=== PATIENT | female | born 1965 | race Caucasian/White ===

== ENCOUNTER 2023-10-28 11:02 | Outpatient (CLI) | payer BC, SELFPAY | END 2023-10-28 11:03 | disposition home or self-care (01) | PROVIDERS: Visit Provider Physician Assistant | DX: M79.605 Pain in left leg (principal) | CPT/HCPCS: 85379 ==

== ENCOUNTER 2024-07-01 08:09 | Emergency (ER) | payer OTHER, SELFPAY ==
[2024-07-01 08:12] VITALS: BP 131/80; PULSE 101; RESP 20; TEMP 37; O2SAT 95; BMI 39.2
--- NOTE | 2024-07-01 08:22 | CRLHL7_ITS ---
For Patients: As a result of the Cures Act, medical imaging exams and procedure reports are released immediately into your electronic medical record. You may view this report before your referring provider. If you have questions, please contact your health care provider. INDICATION: Dizzy, headache. COMPARISON: None. TECHNIQUE: CT of the brain / head without intravenous contrast. Multiplanar axial, coronal, and sagittal reformats were reconstructed. FINDINGS: No intracranial hemorrhage. Normal appearance of the white matter. No acute or subacute cortically based infarct. No mass or mass effect. Normal ventricles. No skull fractures. No worrisome focal bone lesion. IMPRESSION: Normal head CT. Please note that all CT scans at this facility use dose modulation, iterative reconstruction, and/or weight-based dosing when appropriate to reduce radiation dose to as low as reasonably achievable. Dictated by Mary Nicole MD @ 07/01/2024 9:27:40 AM (Electronically Signed)
--- NOTE | 2024-07-01 08:50 | ED.GENADULT ---
HPI - General Adult General Date Seen: 07/01/24 Chief complaint: Dizziness/Vertigo Stated complaint: c/o heart attack, dizzy, short of breath Time Seen by Provider: 07/01/24 08:49 History of Present Illness HPI narrative: History is limited by patient presentation. She is acting and she is personally reporting that confused. often times has trouble remembering details. 59 yo F with a complex past history. History I can get from the patient and her boyfriend is that she has a history of cervical cancer and underwent an abdominal hysterectomy fiber 6 years ago by surgeon in the [facility] system at [facility]. Her hysterectomy was complicated by bowel perforation and also an injury to her ureter. It sounds like she needed bowel surgery and had a colostomy for a couple of years. She subsequently had a colostomy takedown a couple of years later. She also has a history of kidney stones. She thinks she has PTSD from her previous surgery. She has a history of anemia and had been on iron before but is not on iron now. She also has restless legs, anxiety and gets frequent headaches. She presents to the ER this morning with several concerns. First, she says that she ?does not feel right?. She is worried she might be having a heart attack. She also has a bad headache. She feels dizzy. She had described her symptoms and seen confused triage nurses and was complaining of headache so they ordered a stat noncontrast head CT directly during the triage process and called me to her room. I entered the room she was changing into her gown and shortly thereafter our vehicle operator technician arrived to take her for stat imaging. However she was very anxious and refusing to go to CT so CT was held. HPI that I can get from the patient and her boyfriend is as follows. They apparently had a argument over the weekend. She woke up Thursday morning or Thursday morning with a headache. It is all of throughout her head and she says her head feels, ?Whooshy? . She says her he had feels like someone squeezing it and then letting go. It does not really sound like she hit this is a pulsatile headache or that it is really throbbing. Is been coming and going since then. She cannot identify any exacerbating or alleviating factors. Unclear if she has had any medication for it. She has also been having some pain in her flank and the upper portion of her low back, be in particular yesterday. She it is worried that there is something wrong with her kidneys. She says that her kidneys were ?damaged? during her hysterectomy, but cannot tell me what was damage. It sounds like she may have had a ureter injury. Unclear if she had an acute kidney injury or if there was a direct trauma to her kidneys from the surgery. She says sometimes her creatinine is a bit elevated. She has also been having some pain in her left shoulder (in the trapezius muscle) for several days. It sounds like this actually been coming and going for a long time. I can get a clear history about how long it has been going. It sounds like she frequently asks her boyfriend rub that shoulder because it is sore. She is worried she might be having a heart attack. She is not having any anterior chest pain. Yesterday she was feeling like her heart was beating irregularly. I can get a better description about whether is skipping beats or beating faster beating slow. She was dizzy. It sounds like she did not faint. She says food does not taste right today. It sounds like her primary care provider is through the [facility] system. I accessed her medical records through [facility]. Past medical history includes Cervical cancer Hysterectomy Bowel perforation Ureteral vaginal fistula Elevated liver function tests Liver mass Essential thrombocytopenia Thrombocytosis Acute kidney injury Hyponatremia Anxiety Restless legs and Multiple personality disorder Obesity Hyperlipidemia The patient has a copy of her medication list on her smart phone. Medications Furosemide Lomotil Gabapentin Mirapex Hydroxyzine Rosuvastatin Zoloft Trazodone Colestipol CPAP Clotrimazole cream Iron deficiency anemia Related Data Home Medications ?Medication ?Instructions ?Recorded ?Confirmed Bacillus coagulans [Probiotic (B. PO 10/28/23 10/28/23 coagulans)] calcium polycarbophil [Fiber-Tabs] PO 10/28/23 10/28/23 colestipol 1 gram tablet 2 g PO BID 10/28/23 10/28/23 diphenoxylate-atropine 2.5 1 tab PO BID PRN 10/28/23 07/01/24 mg-0.025 mg tablet ferrous sulfate 325 mg (65 mg 325 mg PO DAILY 10/28/23 07/01/24 iron) tablet gabapentin 300 mg capsule mg PO 10/28/23 10/28/23 hydroxyzine HCl 25 mg tablet 25 mg PO QID 10/28/23 07/01/24 lorazepam 0.5 mg tablet mg PO PRN 10/28/23 10/28/23 multivitamin 1 tab PO QAM 10/28/23 10/28/23 phentermine 37.5 mg tablet 37.5 mg PO DAILY 10/28/23 10/28/23 pramipexole 0.125 mg tablet 0.25 mg PO BID 10/28/23 07/01/24 sertraline 50 mg tablet 50 mg PO DAILY 10/28/23 07/01/24 trazodone 150 mg tablet 150 mg PO QPM 10/28/23 07/01/24 furosemide 20 mg tablet 20 mg PO DAILY 07/01/24 07/01/24 rosuvastatin 10 mg tablet 10 mg PO QPM 07/01/24 07/01/24 Previous Rx's ?Medication ?Instructions ?Recorded cephalexin 500 mg capsule 500 mg PO TID #21 caps 10/28/23 cefdinir 300 mg capsule 300 mg PO BID #14 caps 07/01/24 Allergies Allergy/AdvReac Type Severity Reaction Status Date / Time No Known Drug Allergies Allergy Verified 10/28/23 10:18 Exam Narrative: Exam Narrative: Constitutional: Appears well-developed and well-nourished. Alert. She is anxious and tearful. At times her speech seems confused. She had had a CT scan ordered by nurses at triage and when the vehicle operator technician arrived (shortly after I got to her room) she reacted strongly and negatively. She was repetitively saying, ?no thank you. No thank you. No CT. Bad things happen at hospitals. ? At other times she seems a bit confused. Her strongly negative reaction to CT scan prompted further questioning. It turns out she had had complications from a hysterectomy surgery. When we talk about that she takes quite some time to remember the name of the hospital. She seems anxious. HENT: Head: Atraumatic. No depressed skull fracture, Raccoon Eyes, Pemberton's sign, or hemotympanum. Face normal. TMs normal Nose: Nose normal. Mouth/Throat: Oral mucosa is clear and moist. no trismus. Pharynx normal. Tonsils symmetric. No tonsillar enlargement, erythema, or exudate. Eyes: Conjunctivae normal. EOM normal. Pupils equal, round, and reactive to light. No scleral icterus. Neck: Normal range of motion. Neck supple. No tracheal deviation present. No posterior midline tenderness. No paracervical tenderness. She is tender over the left trapezius muscle. Cardiovascular: Normal rate, regular rhythm. No gallop. No friction rub. No murmur heard. Symmetric radial artery pulses Pulmonary/Chest: Effort normal. No stridor. No respiratory distress. No wheezes. No rales. No rhonchi . No tenderness. Abdominal: Soft. Bowel sounds normal. No distension. No mass. No tenderness. No rebound. No guarding. Musculoskeletal: RUE: Normal range of motion. No tenderness. No deformity LUE: Normal range of motion. No tenderness. No deformity RLE: Normal range of motion. No edema. No tenderness. No deformity LLE: Tender over left trapezius muscle. Clavicle, AC joint, proximal humerus, scapula, humeral shaft are all nontender. No bony tenderness or deformity. Normal, active, pain-free range of motion in her left shoulder but she says when she moves it it does make her left trapezius muscle her. Otherwise Normal range of motion. No edema. No tenderness. No deformity Lymph: No cervical adenopathy. Neurological: Alert and oriented to person, place, and time. Normal strength. CN II-VII intact. No sensory deficit. GCS eye subscore is 4. GCS verbal subscore is 5. GCS motor subscore is 6. Normal coordination Skin: Skin is warm and dry. No rash noted. No pallor. Normal capillary refill. Psychiatric: Anxious and tearful. Speech is at times halting and stuttering. We had initially ordered a stat head CT to look for possible head bleed with her several day headache and now dizziness and apparent confusion. She had a strong reaction negatively again CT. She is also endorsing that she had a bad argument with her boyfriend this weekend, the day before her headache started that she gets frequent headaches any way. She is endorsing a lot of anxiety. She says she has PTSD from her previous complicated surgery. Somewhat difficult to get a good history because the patient is vague in her answers. It is hard to get her to clarify what she means when she says a lot of her statements. Const: Vital Signs, click to edit/add: Vital Signs - 24 hr 07/01/24 08:12 07/01/24 09:06 07/01/24 09:30 Temperature 98.6 F Pulse Rate 81 75 Pulse Rate [Pulse Oximeter] 101 H Respiratory Rate 20 16 16 Blood Pressure 123/58 L 126/63 Blood Pressure [Ri ght Upper Arm] 131/80 Pulse Oximetry 95 94 93 Oxygen Delivery Me thod Room Air 07/01/24 10:01 07/01/24 10:37 07/01/24 11:01 Temperature Pulse Rate 75 77 71 Pulse Rate [Pulse Oximeter] Respiratory Rate 16 Blood Pressure 117/54 L 124/64 Blood Pressure [Ri ght Upper Arm] Pulse Oximetry 93 94 93 Oxygen Delivery Me thod Course Vital Signs Vital signs: Initial Vital Signs Temperature 98.6 F 07/01/24 08:12 Temperature Source Oral 07/01/24 08:12 Pulse Rate 101 H 07/01/24 08:12 Respiratory Rate 20 07/01/24 08:12 Blood Pressure 131/80 07/01/24 08:12 Blood Pressure Mean 97 07/01/24 08:12 Blood Pressure Position Sitting 07/01/24 08:12 Pulse Oximetry 95 07/01/24 08:12 Oxygen Delivery Method Room Air 07/01/24 08:12 Vital Signs Temperature 98.6 F 07/01/24 08:12 Pulse Rate 101 H 07/01/24 08:12 Respiratory Rate 20 07/01/24 08:12 Blood Pressure 131/80 07/01/24 08:12 Pulse Oximetry 95 07/01/24 08:12 Oxygen Delivery Method Room Air 07/01/24 08:12 Temperature 98.6 F 07/01/24 08:12 Pulse Rate 71 07/01/24 11:01 Respiratory Rate 16 07/01/24 10:01 Blood Pressure 124/64 07/01/24 11:01 Pulse Oximetry 93 07/01/24 11:01 Oxygen Delivery Method Room Air 07/01/24 08:12 Medications Administered Medications: Discontinued Medications Generic Name Dose Route Start Last Admin Trade Name Freq PRN Reason Stop Dose Admin Hydroxyzine Pamoate 25 mg 07/01/24 09:01 07/01/24 09:25 Hydroxyzine Pamoate 25 Mg Capsule PO 07/01/24 09:02 25 mg ONCE ONE Administration Ketorolac Tromethamine 15 mg 07/01/24 09:01 07/01/24 09:25 Ketorolac 15 Mg/Ml Inj IVP 07/01/24 09:02 15 mg ONCE ONE Administration Medical Decision Making MDM Narrative Medical decision making narrative: 59-year-old female with a complicated past medical history presenting to the ER today. She has multiple complaints these include headache, dizziness, not feeling right, discomfort in the left shoulder, a history of bilateral flank pain yesterday, and she is worried that something is wrong. There is a strong overlay of anxiety to all of her symptoms but it is unclear if anxiety is truly driving all of her symptoms. It is possible that some other medical condition is causing this and triggering anxiety as a secondary problem. 1. Neuro. She is complaining of headache that she woke up with a few days ago. It started after an argument with her boyfriend. It is generalized. She is not having any focal deficits but is complaining of dizziness and trouble focusing. She had an initial very strong negative reaction when we ordered a head CT but ultimately did get sentence imaging was obtained and is normal. No evidence for any intracranial hemorrhage. No other focal deficits to suggest a stroke. Headache was not abrupt in onset or worst headache of life so I do not have high suspicion for subarachnoid hemorrhage. I recognize that with 5 days of headache, noncontrast head CT has limited sensitivity for subarachnoid but at this point I feel that the risk and discomfort of lumbar puncture to look for xanthochromia would outweigh the benefit of LP. She is not having any fever or neck stiffness to suggest meningitis. Headache is not resolved after Toradol given here in the ER. Discussed additional analgesics but patient is declining saying that she can manage her headache at home. 2. Cardiac. She was feeling some irregular heartbeats yesterday and was dizzy. Unclear if the irregular heartbeat correlated to a dizzy or presyncopal face or not. EKG here in the ER shows sinus rhythm without any arrhythmia. She does have low voltage QRS but no arrhythmogenic abnormality. She is complaining of left shoulder pain. Although this could be musculoskeletal, consider possible anginal equivalent. EKG shows no definite ischemia. Troponin is undetectable. Given that she has had this pain for several days, I think a single troponin is sufficient to rule out non ST-elevation myocardial infarction. 3. Pulmonary. She is not having a cough but has had a funny taste in her mouth. Consider COVID. COVID PCR is negative Chest x-ray is negative. Consider possible PE with shortness of breath. She does not have any signs of DVT. No high risk factors here. Overall low risk for PE. D-dimer is obtained and is normal. Therefore would hold off on CT PA. 4. Renal/electrolytes. Patient reports that she had ?ache kidney injury? after her surgery a few years ago and has had an abnormal creatinine. Labs today showed creatinine of 1.4. BUN is 20. Other electrolytes are normal. 5. Endocrine. Blood sugar normal. TSH normal. 6. Psych. There is a component of anxiety underlying her symptoms. She is not acutely decompensated require inpatient mental health care today. She will follow-up with her doctor and arrange outpatient therapy. 7. Infectious disease. Urinalysis is abnormal indicating probable UTI. With her flank pain yesterday consider possible pyelonephritis. Will treat her with a 7 day course of cefdinir. Urine culture pending. White count is 12 but otherwise no sepsis physiology. I do not think she needs to be admitted. She is not having any persistent flank or abdominal pain here in the ER to suggest kidney stone or other surgical emergency so would hold off on CT imaging for now. If symptoms worsen, strongly consider CT as well as repeat labs. Discussed with the patient and her boyfriend. They are both in agreement. Lab Data Labs: Lab Results 07/01/24 07/01/24 07/01/24 Range/Units 09:03 09:14 10:24 WBC 12.17 H (4.50-11.00) K/uL RBC 4.65 (4.00-5.20) m/uL Hgb 12.7 (12.0-16.0) gm/dL Hct 40.3 (33.0-51.0) % MCV 87 (80-100) fL MCH 27 (26-34) pg MCHC 32 (32-36) gm/dL RDW Coeff of Kimberlee 13.0 (11.5-15.5) % Plt Count 286 (140-440) K/uL Neut % (Auto) 83.7 H (42.0-72.0) % Lymph % (Auto) 9.9 L (20-44) % [place] % (Auto) 5.0 (0.0-11.0) % Eos % (Auto) 0.7 (0.0-7.0) % Baso % (Auto) 0.5 (0.0-3.0) % Neut # (Auto) 10.20 H (1.7-7.0) K/uL Lymph # (Auto) 1.20 (0.90-2.90) K/uL [place] # (Auto) 0.60 (0.00-0.90) K/UL Eos # (Auto) 0.10 (0.00-0.50) K/uL Baso # (Auto) 0.10 (0.00-0.30) K/uL Abs Immat Gran (auto) 0.00 (0.00-0.30) K/uL Imm/Tot Granulo (auto) 0.2 % D-Dimer Quant (PE/DVT) 0.41 (0.00-0.50) ug/ml Sodium 136 (135-149) mmol/L Potassium 4.0 (3.6-5.1) mmol/L Chloride 103 (96-114) mmol/L Carbon Dioxide 22 (20-32) mmol/L Anion Gap 11 (7-15) mEq/L BUN 20 (7-30) mg/dL Creatinine 1.4 (0.5-1.5) mg/dL Estimated Creat Clear 43.11 Estimated GFR 44 ml/min Glucose 186 H (60-115) mg/dL Calcium 8.9 (8.4-10.6) mg/dL Total Bilirubin 0.3 (0.1-1.5) mg/dL AST 22 (12-35) U/L ALT 27 (4-35) U/L Alkaline Phosphatase 78 (40-150) U/L Troponin I < 0.01 L (0.01-0.04) ng/mL Total Protein 7.5 (6.0-8.3) g/dL Albumin 4.3 (3.3-5.0) g/dL Lipase 82 (23-300) U/L TSH 1.290 (0.270-4.200) uIU/mL Urine Color Yellow (Yellow) Urine Appearance Cloudy A (Clear) Urine pH 6.0 (5.0-8.5) Ur Specific [place] 1.020 (1.000-1.030) Urine Protein 2+ A (Negative) Urine Glucose (UA) Negative (Negative) Urine Ketones Trace A (Negative) Urine Blood Trace-lysed A (Negative) Urine Nitrite Negative (Negative) Urine Bilirubin Negative (Negative) Urine Urobilinogen 0.2 (0.2-1.0) Ur Leukocyte Esterase 2+ A (Negative) Urine RBC 0-2 (0-2) Urine WBC 50-100 A (0-5) Ur Squamous Epith Cells Few (None-Few) Urine Bacteria Many A (None) SARS-CoV-2 (PCR) Negative SARS-CoV-2 (Negative) Influenza Type A (PCR) Negative PCR FLU A (Negative) Influenza Type B (PCR) Negative PCR FLU B (Negative) POC Troponin I 0.00 L (0.01-0.04) ng/ml Imaging Data CT scan - head: Attestation: I have reviewed the pertinent imaging results. Radiologist's impression: FINDINGS: No intracranial hemorrhage. Normal appearance of the white matter. No acute or subacute cortically based infarct. No mass or mass effect. Normal ventricles. No skull fractures. No worrisome focal bone lesion. IMPRESSION: Normal head CT. Chest x-ray: Attestation: I have reviewed the pertinent imaging results. My impression: IMPRESSION: No acute findings. ECG Data Attestation: I personally reviewed and interpreted this ECG as follows: Interpretation: Normal sinus rhythm Rate: 83 NH: 134 QRS axis: Low voltage QRS. Normal axis ST segment/T wave: Nonspecific T-wave flattening. No ST segment elevation or depression QTc: 413 Discharge Plan Discharge Clinical Impression: UTI (urinary tract infection), Headache, Acute pain of left shoulder, Heart palpitations Instructions: Heart Palpitations (DC), Urinary Tract Infection in Women (DC), Acute Headache (DC) Additional Instructions: As we discussed, please start on the antibiotics sedated treat your urinary tract infection. It will probably take 2-3 days before the symptoms of your UTI start to get better. Be sure to finish the entire 7 day course of antibiotics. The hospital will call you in a couple of days if your urine culture shows that we need to change her antibiotics. Please come back to the ER right away if you have worsening symptoms especially more palpitations, trouble breathing, new chest pain or weakness or fainting spells, high fever, or if you have any other problems. Please recheck with your regular doctor within 1-2 weeks. Prescriptions: New cefdinir 300 mg capsule 300 mg PO BID Qty: 14 0RF No Action gabapentin 300 mg capsule PO hydroxyzine HCl 25 mg tablet 25 mg PO QID lorazepam 0.5 mg tablet PO PRN phentermine 37.5 mg tablet 37.5 mg PO DAILY trazodone 150 mg tablet 150 mg PO QPM colestipol 1 gram tablet 2 g PO BID sertraline 50 mg tablet 50 mg PO DAILY diphenoxylate-atropine 2.5-0.025 mg tablet 1 tab PO BID PRN pramipexole 0.125 mg tablet 0.25 mg PO BID ferrous sulfate 325 mg (65 mg iron) tablet 325 mg PO DAILY multivitamin Tablet 1 tab PO QAM Bacillus coagulans [Probiotic (B. coagulans)] PO calcium polycarbophil [Fiber-Tabs] PO cephalexin 500 mg capsule 500 mg PO TID Qty: 21 0RF furosemide 20 mg tablet 20 mg PO DAILY rosuvastatin 10 mg tablet 10 mg PO QPM Follow Up/Referrals: Provider,Not a Local [Primary Care Provider] - Stand Alone Forms: MyHealth Info Instructions
--- NOTE | 2024-07-01 09:01 | CRLHL7_ITS ---
For Patients: As a result of the Century Cures Act, medical imaging exams and procedure reports are released immediately into your electronic medical record. You may view this report before your referring provider. If you have questions, please contact your health care provider. INDICATION: Dizzy, left shoulder pain TECHNIQUE: Chest 2 views. COMPARISON: None. FINDINGS: Cardiovascular and mediastinum: Borderline cardiomegaly may be related to projection. Unremarkable mediastinum. Lungs and pleural spaces: Lung volumes are slightly low. No sign of infiltrate or mass. No sign of pleural effusion. No pneumothorax. Bones and soft tissues: No significant findings. The left shoulder is excluded from the field of view on the PA image. IMPRESSION: No acute findings. Dictated by Iris Vee MD @ 07/01/2024 9:26:38 AM (Electronically Signed)
[2024-07-01 09:06] VITALS: BP 123/58; PULSE 81; RESP 16; O2SAT 94
[2024-07-01 09:15] LABS: Basophils Percent Auto 0.5 % (0.0-3.0); Eosinophils Percent Auto 0.7 % (0.0-7.0); Hematocrit 40.3 % (33.0-51.0); Hemoglobin* 12.7 gm/dL (12.0-16.0); Immature Granulocytes Pct Auto 0.2 %; Lymphocytes Percent Auto 9.9 % (20-44); Mean Corpuscular HGB Conc 32 gm/dL (32-36); Mean Corpuscular Hemoglobin 27 pg (26-34); Mean Corpuscular Volume 87 fL (80-100); Neutrophils Percent Auto 83.7 % (42.0-72.0); Platelet Count* 286 K/uL (140-440); Red Blood Count 4.65 m/uL (4.00-5.20); White Blood Count* 12.17 K/uL (4.50-11.00)
[2024-07-01 09:21] LABS: Slide Review Reflex No
[2024-07-01] MEDS: hydrOXYzine pamoate 25 MG CAPSULE PO (09:25)
[2024-07-01] MEDS: KETOROLAC 15 MG/ML inj IVP (09:25)
[2024-07-01 09:30] VITALS: BP 126/63; PULSE 75; RESP 16; O2SAT 93
[2024-07-01 09:32] LABS: Albumin* 4.3 g/dL (3.3-5.0); Chloride* 103 mmol/L (96-114); Sodium* 136 mmol/L (135-149)
[2024-07-01 09:34] LABS: Creatinine* 1.4 mg/dL (0.5-1.5); D Dimer Quantitative* 0.41 ug/ml (0.00-0.50); Est. Creatinine Clearance* 43.11; Estimated Glomerular Filt Rate 44 ml/min; Lipase* 82 U/L (23-300)
[2024-07-01 09:35] LABS: Alanine Aminotransferase* 27 U/L (4-35); Alkaline Phosphatase* 78 U/L (40-150); Anion Gap 11 mEq/L (7-15); Aspartate Amino Transferase* 22 U/L (12-35); Bilirubin Total* 0.3 mg/dL (0.1-1.5); Blood Urea Nitrogen* 20 mg/dL (7-30); Calcium* 8.9 mg/dL (8.4-10.6); Carbon Dioxide* 22 mmol/L (20-32); Glucose* 186 mg/dL (60-115); Total Protein* 7.5 g/dL (6.0-8.3)
[2024-07-01 09:52] LABS: Troponin I* < 0.01 ng/mL (0.01-0.04)
[2024-07-01 09:58] LABS: PCR FLU A Negative PCR FLU A (Negative); PCR FLU B Negative PCR FLU B (Negative); SARS PCR* Negative SARS-CoV-2 (Negative)
[2024-07-01 10:01] VITALS: BP 117/54; PULSE 75; RESP 16; O2SAT 93
[2024-07-01 10:31] LABS: Appearance Urine Cloudy (Clear); Bilirubin Urine Negative (Negative); Blood Urine Trace-lysed (Negative); Color Urine Yellow (Yellow); Glucose Urine Negative (Negative); Ketones Urine Trace (Negative); Leukocyte Esterase Urine 2+ (Negative); Nitrite Urine Negative (Negative); Protein Urine 2+ (Negative); Urobilinogen Urine 0.2 (0.2-1.0)
[2024-07-01 10:37] VITALS: PULSE 77; O2SAT 94
[2024-07-01 10:59] LABS: Bacteria Urine Many; RBC Urine 0-2 (0-2); Squamous Epithelial Cell Urine Few (None-Few); WBC Urine 50-100 (0-5)
[2024-07-01 11:01] VITALS: BP 124/64; PULSE 71; O2SAT 93
--- NOTE | 2024-07-04 16:49 | ED.GENADULT ---
HPI - General Adult General Chief complaint: Dizziness/Vertigo Stated complaint: Addendum to recent ER visit Time Seen by Provider: 07/01/24 08:49 History of Present Illness HPI narrative: Patient was seen in the ER couple of days ago. Multiple planes. Had UTI. Culture growing Klebsiella. It is sensitive to the prescribed cefdinir. No change. Related Data Home Medications ?Medication ?Instructions ?Recorded ?Confirmed Bacillus coagulans [Probiotic (B. PO 10/28/23 10/28/23 coagulans)] calcium polycarbophil [Fiber-Tabs] PO 10/28/23 10/28/23 colestipol 1 gram tablet 2 g PO BID 10/28/23 10/28/23 diphenoxylate-atropine 2.5 1 tab PO BID PRN 10/28/23 07/01/24 mg-0.025 mg tablet ferrous sulfate 325 mg (65 mg 325 mg PO DAILY 10/28/23 07/01/24 iron) tablet gabapentin 300 mg capsule mg PO 10/28/23 10/28/23 hydroxyzine HCl 25 mg tablet 25 mg PO QID 10/28/23 07/01/24 lorazepam 0.5 mg tablet mg PO PRN 10/28/23 10/28/23 multivitamin 1 tab PO QAM 10/28/23 10/28/23 phentermine 37.5 mg tablet 37.5 mg PO DAILY 10/28/23 10/28/23 pramipexole 0.125 mg tablet 0.25 mg PO BID 10/28/23 07/01/24 sertraline 50 mg tablet 50 mg PO DAILY 10/28/23 07/01/24 trazodone 150 mg tablet 150 mg PO QPM 10/28/23 07/01/24 furosemide 20 mg tablet 20 mg PO DAILY 07/01/24 07/01/24 rosuvastatin 10 mg tablet 10 mg PO QPM 07/01/24 07/01/24 Previous Rx's ?Medication ?Instructions ?Recorded cephalexin 500 mg capsule 500 mg PO TID #21 caps 10/28/23 cefdinir 300 mg capsule 300 mg PO BID #14 caps 07/01/24 Allergies Allergy/AdvReac Type Severity Reaction Status Date / Time No Known Drug Allergies Allergy Verified 10/28/23 10:18 Course Vital Signs Vital signs: Initial Vital Signs Temperature 98.6 F 07/01/24 08:12 Temperature Source Oral 07/01/24 08:12 Pulse Rate 101 H 07/01/24 08:12 Respiratory Rate 20 07/01/24 08:12 Blood Pressure 131/80 07/01/24 08:12 Blood Pressure Mean 97 07/01/24 08:12 Blood Pressure Position Sitting 07/01/24 08:12 Pulse Oximetry 95 07/01/24 08:12 Oxygen Delivery Method Room Air 07/01/24 08:12 Vital Signs Temperature 98.6 F 07/01/24 08:12 Pulse Rate 101 H 07/01/24 08:12 Respiratory Rate 20 07/01/24 08:12 Blood Pressure 131/80 07/01/24 08:12 Pulse Oximetry 95 07/01/24 08:12 Oxygen Delivery Method Room Air 07/01/24 08:12 Temperature 98.6 F 07/01/24 08:12 Pulse Rate 71 07/01/24 11:01 Respiratory Rate 16 07/01/24 10:01 Blood Pressure 124/64 07/01/24 11:01 Pulse Oximetry 93 07/01/24 11:01 Oxygen Delivery Method Room Air 07/01/24 08:12 Medications Administered Medications: Discontinued Medications Generic Name Dose Route Start Last Admin Trade Name Freq PRN Reason Stop Dose Admin Hydroxyzine Pamoate 25 mg 07/01/24 09:01 07/01/24 09:25 Hydroxyzine Pamoate 25 Mg Capsule PO 07/01/24 09:02 25 mg ONCE ONE Administration Ketorolac Tromethamine 15 mg 07/01/24 09:01 07/01/24 09:25 Ketorolac 15 Mg/Ml Inj IVP 07/01/24 09:02 15 mg ONCE ONE Administration Medical Decision Making Lab Data Labs: Lab Results 07/01/24 07/01/24 07/01/24 Range/Units 09:03 09:14 10:24 WBC 12.17 H (4.50-11.00) K/uL RBC 4.65 (4.00-5.20) m/uL Hgb 12.7 (12.0-16.0) gm/dL Hct 40.3 (33.0-51.0) % MCV 87 (80-100) fL MCH 27 (26-34) pg MCHC 32 (32-36) gm/dL RDW Coeff of Kimberlee 13.0 (11.5-15.5) % Plt Count 286 (140-440) K/uL Neut % (Auto) 83.7 H (42.0-72.0) % Lymph % (Auto) 9.9 L (20-44) % Sampson % (Auto) 5.0 (0.0-11.0) % Eos % (Auto) 0.7 (0.0-7.0) % Baso % (Auto) 0.5 (0.0-3.0) % Neut # (Auto) 10.20 H (1.7-7.0) K/uL Lymph # (Auto) 1.20 (0.90-2.90) K/uL Sampson # (Auto) 0.60 (0.00-0.90) K/UL Eos # (Auto) 0.10 (0.00-0.50) K/uL Baso # (Auto) 0.10 (0.00-0.30) K/uL Abs Immat Gran (auto) 0.00 (0.00-0.30) K/uL Imm/Tot Granulo (auto) 0.2 % D-Dimer Quant (PE/DVT) 0.41 (0.00-0.50) ug/ml Sodium 136 (135-149) mmol/L Potassium 4.0 (3.6-5.1) mmol/L Chloride 103 (96-114) mmol/L Carbon Dioxide 22 (20-32) mmol/L Anion Gap 11 (7-15) mEq/L BUN 20 (7-30) mg/dL Creatinine 1.4 (0.5-1.5) mg/dL Estimated Creat Clear 43.11 Estimated GFR 44 ml/min Glucose 186 H (60-115) mg/dL Calcium 8.9 (8.4-10.6) mg/dL Total Bilirubin 0.3 (0.1-1.5) mg/dL AST 22 (12-35) U/L ALT 27 (4-35) U/L Alkaline Phosphatase 78 (40-150) U/L Troponin I < 0.01 L (0.01-0.04) ng/mL Total Protein 7.5 (6.0-8.3) g/dL Albumin 4.3 (3.3-5.0) g/dL Lipase 82 (23-300) U/L TSH 1.290 (0.270-4.200) uIU/mL Urine Color Yellow (Yellow) Urine Appearance Cloudy A (Clear) Urine pH 6.0 (5.0-8.5) Ur Specific [place] 1.020 (1.000-1.030) Urine Protein 2+ A (Negative) Urine Glucose (UA) Negative (Negative) Urine Ketones Trace A (Negative) Urine Blood Trace-lysed A (Negative) Urine Nitrite Negative (Negative) Urine Bilirubin Negative (Negative) Urine Urobilinogen 0.2 (0.2-1.0) Ur Leukocyte Esterase 2+ A (Negative) Urine RBC 0-2 (0-2) Urine WBC 50-100 A (0-5) Ur Squamous Epith Cells Few (None-Few) Urine Bacteria Many A (None) SARS-CoV-2 (PCR) Negative SARS-CoV-2 (Negative) Influenza Type A (PCR) Negative PCR FLU A (Negative) Influenza Type B (PCR) Negative PCR FLU B (Negative) POC Troponin I 0.00 L (0.01-0.04) ng/ml Discharge Plan Discharge Clinical Impression: UTI (urinary tract infection), Headache, Acute pain of left shoulder, Heart palpitations Patient Disposition: Home, Self-Care Condition: Stable Instructions: Heart Palpitations (DC), Urinary Tract Infection in Women (DC), Acute Headache (DC) Additional Instructions: As we discussed, please start on the antibiotics sedated treat your urinary tract infection. It will probably take 2-3 days before the symptoms of your UTI start to get better. Be sure to finish the entire 7 day course of antibiotics. The hospital will call you in a couple of days if your urine culture shows that we need to change her antibiotics. Please come back to the ER right away if you have worsening symptoms especially more palpitations, trouble breathing, new chest pain or weakness or fainting spells, high fever, or if you have any other problems. Please recheck with your regular doctor within 1-2 weeks. Prescriptions: New cefdinir 300 mg capsule 300 mg PO BID Qty: 14 0RF No Action gabapentin 300 mg capsule PO hydroxyzine HCl 25 mg tablet 25 mg PO QID lorazepam 0.5 mg tablet PO PRN phentermine 37.5 mg tablet 37.5 mg PO DAILY trazodone 150 mg tablet 150 mg PO QPM brandiipol 1 gram tablet 2 g PO BID sertraline 50 mg tablet 50 mg PO DAILY diphenoxylate-atropine 2.5-0.025 mg tablet 1 tab PO BID PRN pramipexole 0.125 mg tablet 0.25 mg PO BID ferrous sulfate 325 mg (65 mg iron) tablet 325 mg PO DAILY multivitamin Tablet 1 tab PO QAM Bacillus coagulans [Probiotic (B. coagulans)] PO calcium polycarbophil [Fiber-Tabs] PO cephalexin 500 mg capsule 500 mg PO TID Qty: 21 0RF furosemide 20 mg tablet 20 mg PO DAILY rosuvastatin 10 mg tablet 10 mg PO QPM Follow Up/Referrals: Provider,Not a Local [Primary Care Provider] - Stand Alone [facility] Info Instructions
== END 2024-07-01 11:36 | disposition home or self-care (01) ==
PROVIDERS: Emergency Provider Emergency Medicine
DX: N39.0 Urinary tract infection, site not specified (principal); R51.9 Headache, unspecified; R00.2 Palpitations; M25.512 Pain in left shoulder
CPT/HCPCS: 36415; 70450; 71046; 80053; 81001; 83690; 84443; 84484; 85025; 85379; 87086; 87186; 87631; 93005; 96374; 99281; 99284; 99285; A9270; J1885